=== PATIENT | female | born 1945 | race African-American/Black ===

== ENCOUNTER 2021-08-21 17:20 | Inpatient (IN) | payer OTHER ==
[~2021-08-21] VITALS: Ht 153.9 cm; Wt 90.7 kg
[~2021-08-21 17:20] MED LIST: ETOMIDATE 2MG/ML 10ML VIAL IV ONE; HEPARIN 1000 UNITS/ML 10ML ONE; NOREPINEPHRINE 8MG in NS 250ML PREMIX IV ONE; PHENYLEPHRINE 100MCG/ML 10ML VIAL (CATH LAB) IV ONE; SODIUM CHLORIDE 0.9% 10ML VIAL ONE; VECURONIUM BROMIDE 10 MG/VIAL IV ONE
[2021-08-21] MEDS ORDERED: PIPERACILLIN/TAZ 3.375G PREMIX 50 ML IV ONE (18:15)
[2021-08-21] MEDS ORDERED: VANCOMYCIN 1G PREMIX 200 ML IV ONE (18:15)
[2021-08-21 18:19] LABS: HEMATOCRIT. 34.1 % (36.0-48.0); HEMOGLOBIN. 10.3 g/dL (12.0-16.0); MEAN CORPUSCULAR HEMOGLOBIN 24.6 pg (28.0-32.0); MEAN CORPUSCULAR VOLUME 81.2 fL (81.0-99.0); MEAN PLATELET VOLUME 10.7 fl (7.4-10.4); PLATELET 101 x1000/uL (130-400); RED BLOOD CELL COUNT 4.19 mill/uL (4.2-5.4); RED CELL DISTRIBUTION WIDTH 19.2 % (11.6-14.6)
[2021-08-21 18:32] LABS: CHLORIDE 110 mEq/L (98-107)
[2021-08-21 18:46] LABS: PLATELET ESTIMATE DECREASED
[2021-08-21] MEDS ORDERED: SODIUM BICARBONATE 8.4% 1 MEQ/ML 50ML SYR IV ONE (19:00)
[2021-08-21] MEDS ORDERED: SODIUM POLYSTYRENE SULFONATE 15 G/60 ML BOT PO ONE (19:00)
[2021-08-21] MEDS ORDERED: VANCOMYCIN 1GM PMX (XELLIA) 200 ML IV NR (19:00)
[2021-08-21] MEDS ORDERED: CALCIUM CHLORIDE 1GM/10ML SYR IV ONE (19:00)
[2021-08-21] MEDS ORDERED: ALBUTEROL (0.083%) 2.5MG/3ML NEB HHN ONE (19:00)
[2021-08-21] MEDS ORDERED: DEXTROSE 50% WATER 50ML SYRINGE IV ONE (19:00)
[2021-08-21] MEDS ORDERED: INSULIN REGULAR (HUMULIN R) 300UNITS/3ML VIAL IV ONE (19:00)
[2021-08-21] MEDS ORDERED: FENTANYL 2500MCG/250ML PMX 250 ML IV STA (19:04)
[2021-08-21] MEDS ORDERED: MIDAZOLAM HCL 50 MG in DEXTROSE 5% WATER 40 ML IV ONE (19:15)
[2021-08-21] MEDS ORDERED: MIDAZOLAM 100MG/100ML PMX 100 ML IV SCH (19:30)
[2021-08-21] MEDS ORDERED: MIDAZOLAM 100MG/100ML PMX 100 ML IV PRN ×2 (19:30→22:00)
[2021-08-21] MEDS ORDERED: IPRATROPIUM/ALBUTEROL 0.5-3(2.5)MG/3ML NEB HHN PRN (19:45)
[2021-08-21] MEDS ORDERED: ACETAMINOPHEN 325MG TABLET PO PRN (19:45)
[2021-08-21] MEDS ORDERED: GUAIFENESIN 200MG/10ML SUGAR FREE UDC PO PRN (19:45)
[2021-08-21] MEDS ORDERED: DOCUSATE SODIUM 100MG CAPSULE PO PRN (19:45)
[2021-08-21] MEDS ORDERED: DEXTROSE 50% WATER 50ML SYRINGE IV PRN (19:45)
[2021-08-21] MEDS ORDERED: ONDANSETRON HCL 4MG/2ML INJ IV PRN (19:45)
[2021-08-21] MEDS ORDERED: MORPHINE SULFATE 10 MG/ML CPJ IV ONE (19:45)
[2021-08-21] MEDS ORDERED: MORPHINE SULFATE 2 MG/ML CPJ (NOT FOR IM USE) IV PRN (20:00)
[2021-08-21] MEDS ORDERED: NALOXONE HCL 0.4MG/ML VIAL IV PRN (20:00)
[2021-08-21] MEDS ORDERED: CEFEPIME 1,000 MG in DEXTROSE 5% WATER 50 ML IV SCH (20:00)
[2021-08-21] MEDS ORDERED: BLOOD SUGAR DIAGNOSTIC STRIP TEST SCH (20:00)
[2021-08-21] MEDS ORDERED: IODIXANOL 320MG/ML 100 ML BOTTLE IV ONE (20:06)
[2021-08-21] MEDS ORDERED: IOHEXOL-300 100 ML BOTTLE ONE (20:06)
[2021-08-21] MEDS ORDERED: LIDOCAINE HCL 1% 30ML VIAL (10MG/ML) ONE (20:06)
[2021-08-21] MEDS ORDERED: EPINEPHRINE 0.1MG/ML (1:10,000) 10ML SYR ONE (20:20)
[2021-08-21] MEDS ORDERED: ATROPINE SULFATE 0.1MG/ML 10ML DISP.SYRIN ONE (20:20)
[2021-08-21] MEDS ORDERED: NOREPINEPHRINE 8MG/250ML PMX 250 ML IV PRN ×2 (20:30→22:00)
[2021-08-21] MEDS ORDERED: SODIUM CHLORIDE 0.9% 1,000 ML IV ONE (20:30)
[2021-08-21] MEDS ORDERED: ATORVASTATIN CALCIUM 40MG TABLET PO SCH (21:00)
[2021-08-21] MEDS ORDERED: VANCOMYCIN 750MG PREMIX 150 ML IV NR (21:30)
[2021-08-21 21:48] LABS: BG BASE EXCESS -17.9 mmol/L (-2.0-2.0); BG CARBOXYHEMOGLOBIN 0.2 % (0.5-1.5); BG DEOXYHEMOGLOBIN 0.7 % (0.0-5.0); BG FRACTION INSPIRED OXYGEN 100; BG HCO3 ACT 10.6 mmol/L (22.0-26.0); BG METHEMOGLOBIN 0.5 % (0.0-1.5); BG OXYGEN SATURATION 99.3 % (92.0-98.5); BG OXYHEMOGLOBIN 98.6 % (94.0-97.0); BG PCO2 34.7 mmHg (35.0-45.0); BG PH 7.102 (7.350-7.450); BG PO2 492.8 mmHg (75.0-100.0); BG SAMPLE SITE ALINE; BG TOTAL HEMOGLOBIN 10.2 g/dL (12.0-18.0); BG VENT MODE VENT - AC
[2021-08-21] MEDS ORDERED: SODIUM BICARBONATE 8.4% 1 MEQ/ML 50ML SYR IV SCH ×2 (22:00)
[2021-08-22] MEDS ORDERED: VANCOMYCIN 750MG PMX (XELLIA) 150 ML IV SCH
[2021-08-22] MEDS ORDERED: NOREPINEPHRINE 8 MG in DEXTROSE 5% WATER 250 ML IV PRN ×2
[2021-08-22] MEDS: INSULIN LISPRO 100 UNITS/ML SUBCUT SCH
[2021-08-22 01:02] VITALS: BP 114/42
[2021-08-22 01:03] LABS: BG BASE EXCESS -11.1 mmol/L (-2.0-2.0); BG CARBOXYHEMOGLOBIN 0.3 % (0.5-1.5); BG DEOXYHEMOGLOBIN 0.9 % (0.0-5.0); BG FRACTION INSPIRED OXYGEN 50; BG HCO3 ACT 13.4 mmol/L (22.0-26.0); BG METHEMOGLOBIN 0.2 % (0.0-1.5); BG OXYGEN SATURATION 99.1 % (92.0-98.5); BG OXYHEMOGLOBIN 98.6 % (94.0-97.0); BG PCO2 26.1 mmHg (35.0-45.0); BG PH 7.329 (7.350-7.450); BG PO2 248.5 mmHg (75.0-100.0); BG SAMPLE SITE ALINE; BG TOTAL HEMOGLOBIN 10.5 g/dL (12.0-18.0); BG VENT MODE VENT - AC
[2021-08-22] MEDS ORDERED: SODIUM BICARBONATE 8.4% 1 MEQ/ML 50ML SYR IV SCH (01:30)
[2021-08-22] MEDS ORDERED: SODIUM POLYSTYRENE SULFONATE 15 G/60 ML BOT PO SCH (01:45)
[2021-08-22] MEDS ORDERED: INSULIN REGULAR (HUMULIN R) 300UNITS/3ML VIAL SUBCUT SCH (01:45)
[2021-08-22] MEDS ORDERED: DEXTROSE 50% WATER 50ML SYRINGE IV SCH (01:45)
[2021-08-22] MEDS ORDERED: CALCIUM GLUCONATE 100MG/ML 10ML VIAL IV ONE (01:45)
[2021-08-22] MEDS ORDERED: CALCIUM GLUCONATE 1GM PREMIX 50 ML IV SCH (02:00)
[2021-08-22] MEDS ORDERED: SODIUM BICARBONATE 100 MEQ in DEXTROSE 5% WATER 1,000 ML IV SCH (03:00)
[2021-08-22] MEDS ORDERED: DIGOXIN 500MCG/2ML AMP IV SCH (05:30)
[2021-08-22] MEDS ORDERED: VASOPRESSIN 20 UNIT in SODIUM CHLORIDE 0.9% 99 ML IV PRN (06:00)
[2021-08-22 08:34] LABS: LDL CHOLESTEROL 13 mg/dL (5-100)
[2021-08-22 08:39] LABS: HDL CHOLESTEROL 15 mg/dL (40-59)
[2021-08-22] MEDS ORDERED: EPINEPHRINE 0.1MG/ML (1:10,000) 10ML SYR ONE (08:59)
[2021-08-22] MEDS ORDERED: SODIUM BICARBONATE 8.4% 1 MEQ/ML 50ML SYR IV ONE (08:59)
[2021-08-22] MEDS ORDERED: DEXTROSE 50% WATER 50ML SYRINGE IV ONE (08:59)
[2021-08-22] MEDS ORDERED: CALCIUM CHLORIDE 1GM/10ML SYR IV ONE (08:59)
[2021-08-22] MEDS ORDERED: AMIODARONE HCL 50MG/ML 3ML VIAL IV ONE (08:59)
[2021-08-22] MEDS ORDERED: ASPIRIN 81MG TABLET PO SCH (09:00)
== END 2021-08-22 05:44 | DRG 871 ==
LOC: ER 17:20 → EDBEDREQSVC 18:07 → CVICU 19:18 → EDBEDREQTM 19:27 → EDBEDREQ 19:27 → EDBEDREQSVC 19:27
PROVIDERS: ADMIT Internal Medicine; ATTEND Internal Medicine
PROC: B211YZZ Fluoroscopy of Multiple Coronary Arteries using Other Contrast (ICD-10-PCS; 2021-08-21)
PROC: B215YZZ Fluoroscopy of Left Heart using Other Contrast (ICD-10-PCS; 2021-08-21)
PROC: 4A023N7 Measurement of Cardiac Sampling and Pressure, Left Heart, Percutaneous Approach (ICD-10-PCS; 2021-08-21)
PROC: 0BH17EZ Insertion of Endotracheal Airway into Trachea, Via Natural or Artificial Opening (ICD-10-PCS; 2021-08-21)
PROC: 5A1935Z Respiratory Ventilation, Less than 24 Consecutive Hours (ICD-10-PCS; 2021-08-21)
PROC: 5A12012 Performance of Cardiac Output, Single, Manual (ICD-10-PCS; principal; 2021-08-22)
DX: A41.9 Sepsis, unspecified organism (principal); I21.3 ST elevation (STEMI) myocardial infarction of unspecified site; J96.00 Acute respiratory failure, unspecified whether with hypoxia or hypercapnia; E43 Unspecified severe protein-calorie malnutrition; R65.21 Severe sepsis with septic shock; N17.9 Acute kidney failure, unspecified; E78.9 Disorder of lipoprotein metabolism, unspecified; J44.9 Chronic obstructive pulmonary disease, unspecified; D69.6 Thrombocytopenia, unspecified; D64.9 Anemia, unspecified; E87.5 Hyperkalemia; E78.5 Hyperlipidemia, unspecified; I25.10 Atherosclerotic heart disease of native coronary artery without angina pectoris; I12.9 Hypertensive chronic kidney disease with stage 1 through stage 4 chronic kidney disease, or unspecified chronic kidney disease; E11.22 Type 2 diabetes mellitus with diabetic chronic kidney disease; N18.9 Chronic kidney disease, unspecified; Z20.822 Contact with and (suspected) exposure to COVID-19; Z87.891 Personal history of nicotine dependence; Z68.38 Body mass index [BMI] 38.0-38.9, adult
CPT/HCPCS: 36415; 36600; 71045; 80048; 80053; 80061; 82375; 82805; 83036; 83605; 83880; 84145; 84484; 85025; 87070; 87426; 93005; 93454; 94002; 99291; C1726; C1769; C1887; C1893; J0282; J0461; J0610; J0692; J1644; J1815; J2250; J2270; J2370; J2405; J2543; J3010; J3370; J3490; J7060; J7070; Q9967; A4315